=== PATIENT | male | born 1980 | race Caucasian/White ===

== ENCOUNTER 2017-08-03 12:30 | Emergency (ER) | payer BC ==
[~2017-08-03] VITALS: Ht 180.3 cm; Wt 74.8 kg
--- NOTE | 2017-08-03 12:45 | NUR ---
PT IN BED. PT A&OX4. PT STATES BEING BITTEN BY "RAT" THIS MORNING. PT DENIES ANY PHYSICAL, MENTAL OR EMOTIONAL CHANGES SINCE BEING BITTEN. PT WAITING FOR MD ASIF.
--- NOTE | 2017-08-03 13:05 | NUR ---
PER MD, PT STABLE FOR DC. PT GIVEN AFTERCARE INSTRUCTION BY MD. PT VERBALIZED THESE INSTRUCTIONS. PT SAID HE HAS APPOINTMENT W/ PMD ON AUGUST 08.
[2017-08-03] MEDS ORDERED: TDAP DIPH,PERTUSS,TET VAC/PF 0.5 ML DISP.SYRIN IM ONE ×2 (13:15→13:30)
[2017-08-03 13:18] VITALS: BP 126/80
== END 2017-08-03 13:09 | disposition home or self-care (01) ==
LOC: ER 12:36
DX: S61.051A Open bite of right thumb without damage to nail, initial encounter (principal); E10.9 Type 1 diabetes mellitus without complications; Z79.4 Long term (current) use of insulin; W53.11XA Bitten by rat, initial encounter; Y93.89 Activity, other specified; Y92.89 Other specified places as the place of occurrence of the external cause; Y99.8 Other external cause status
CPT/HCPCS: 90715; A4663